=== PATIENT | male | born 2000 ===

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

== ENCOUNTER 2021-05-16 03:42 | Observation (INO) | payer SELFPAY ==
[~2021-05-16] VITALS: Ht 177.8 cm; Wt 73.5 kg
[2021-05-16] VITALS (11 sets, daily range): BP systolic 106–128; BP diastolic 40–79; PULSE 60–82; TEMP 98.4–98.6
--- NOTE | 2021-05-16 05:58 | NUR ---
Patient arrived from [facility] via EMS at approximately 0415. Alert and oriented, and able to make needs known. Denies having pain and discomfort at this time. Peripheral IV to right AC, with NS running at 125 ml/hr. Denies SOB and dyspnea. LS CTA. HRR. BSAx4. Reports small BM prior to being transferred to this hospital. Denies diarrhea. No edema. Patient aware that he is going to be NPO for possible surgery today. All questions answered. Voices no further questions, needs, or concerns at this time. Called Dr. Carranza at approximately 0445, and orders recieved to be NPO, continue NS at 125, Dilaudid 0.25 mg IV Q2H PRN for pain, and Zofran 4 mg IV Q6H PRN for nausea. Patient in bed with call light within reach. Eyes closed.
--- NOTE | 2021-05-16 08:00 | NUR ---
PATIENT IS A&O. VSS. DENIES PAIN OR NAUSEA AT THIS TIME. HEAD TO TOE ASSESSMENT COMPLETE. PRE-OP MEDS GIVEN, OBTAINING CONSENT NOW, OR TO COME GET PATIENT SOON. ROUNDED, SEE ORDERS. FRIEND AT BEDSIDE.
--- NOTE | 2021-05-16 08:45 | NUR ---
PATIENT GOING DOWN TO OR VIA BED FOR PROCEDURE. CONSENT ON CHART. IV FLUIDS HANGING VIA GRAVITY. PATIENT OFF FLOOR.
[2021-05-16] MEDS ORDERED: NORCO 325 MG-51 TAB PO (09:59)
--- NOTE | 2021-05-16 10:50 | NUR ---
PATIENT BACK IN ROOM POST-OP. A&O. VSS. NO COMPLAINTS. ABD LAP SITES X3 ARE CD&I. HEAD TO TOE WNL. WATER AT BEDSIDE. NURSING EDUCATED ABOUT DISCHARGE CRITERIA, VERBALIZED UNDERSTANDING. NO NEEDS. CALL LIGHT IN REACH. OR NURSE REPORTED TO PATIENT AND NURSE THAT TALKED WITH HIS MOTHER.
--- NOTE | 2021-05-16 14:36 | NUR ---
SW met with patient to complete intake. Patient stated that he lives in [facility] with his parents Melani [phone], . Patient states that he does not utilize any DME and is independent with ADLs. Patient states that his pharmacy is [facility] and he has no individual appointed as his DPOA/HC. Patient states that he plans to return to his home upon DC. SW will continue to follow. DC plan: home
--- NOTE | 2021-05-16 15:45 | NUR ---
PATIENT MEET DISCHARGE CRITERIA EATING, DRINKING & VOIDING. PAIN MANAGED BUT PATIENT WOULD LIKE SOMETHING FOR PAIN BEFORE DISCHARGE TO HOME IN [place]. FRIENDS AT BEDSIDE. GAVE DISCHARGE INSTRUCTIONS, E-SCRIPT SENT AND F/U APT DISCUSSED. DC'D IV SITE AND COVERED WITH GAUZE & COBAN. PATIENT IS DRESSED, PACKED AND ESCORTED OUT VIA AMBULATORY.
== END 2021-05-16 15:45 | disposition home or self-care (01) ==
LOC: MEDICAL 03:42 → SURG 04:15
PROVIDERS: ADMIT Surgery
DX: K35.80 Unspecified acute appendicitis (principal)
CPT/HCPCS: G0378; J0330; J1100; J1885; J2405; J2543; J2704; J3010; J7030